=== PATIENT | male | born 1970 | race Caucasian/White ===

== ENCOUNTER 2020-08-23 11:44 | Day surgery (SDC) | payer OTHER ==
[2020-08-21 08:34] LABS: BASOPHILS % (AUTO) 1 % (0-1); EOSINOPHILS % (AUTO) 4 % (1-7); LYMPHOCYTES % (AUTO) 32 % (22-44); MEAN CORPUSCULAR HEMOGLOBIN 30.3 pg (27.5-34.5); MEAN CORPUSCULAR HGB CONC 34.4 g/dL (33.2-36.2); MEAN PLATELET VOLUME 8.8 fL (7.4-10.4); MONOCYTES % (AUTO) 6 % (2-9); NEUTROPHILS % (AUTO) 57 % (42-75); PLATELET COUNT 265 x10^3/uL (130-400); RED BLOOD COUNT 5.24 x10^6/uL (4.38-5.82); RED CELL DISTRIBUTION WIDTH 13.4 % (9.4-14.8)
[2020-08-21 08:43] LABS: MD NO
[2020-08-21 08:45] LABS: ANION GAP 5 mmol/L (5-15); CHLORIDE 106 mmol/L (98-107); CREATININE 0.96 mg/dL (0.7-1.3)
[2020-08-21 08:46] LABS: MICROSCOPIC AUTO
[2020-08-21 08:46] LABS: ALANINE AMINOTRANSFERASE 33 U/L (12-78); ALBUMIN 4.5 g/dL (3.4-5.0)
[2020-08-21 08:47] LABS: INTERNATIONAL NORMALIZED RATIO 1.06 (0.93-1.1); PROTHROMBIN TIME 11.3 Seconds (9.6-11.5)
[2020-08-21 08:48] LABS: ALKALINE PHOSPHATASE 71 U/L (45-117); BILIRUBIN,TOTAL 1.1 mg/dL (0.2-1.0); TOTAL PROTEIN 8.4 g/dL (6.4-8.2)
[~2020-08-23] VITALS: Ht 170.2 cm; Wt 82.7 kg
[~2020-08-23 11:44] MED LIST: ACETAMINOPHEN 325 MG TABLET PO PRN; AMLO5TAB4 PO; ATOR10TA9 PO; CITA10TA4 PO; DIAZEPAM 5 MG/ML, 2ML IVPush PRN; DIPHENHYDRAMINE 50 MG/ML, 1ML IVPush PRN; EPHEDRINE 50 MG/ML, 1ML IVPush PRN; FENTANYL PF 100 MCG/2ML IV PRN; HALOPERIDOL 5 MG/ML IV PRN; HYDROmorphone 1 MG/ML, 1ML INJ IVPush PRN; LABETALOL 5MG/ML, 20ML IV PRN; LISI-170 PO; LORA2TAB99 PO; MEPERIDINE/PF 25MG/0.5ML IVPush PRN; METF500T17 PO; METOCLOPRAMIDE 5 MG/ML, 2ML IVPush PRN; METOPROLOL 1 MG/ML, 5ML IV PRN; OMEP-110 PO; ONDANSETRON 2MG/ML, 2ML IVPush PRN; OXYcodone 5 MG/5 ML ORAL.SOL UDC PO PRN; PROMETHAZINE 25 MG/ML, 1ML IVPush PRN; hydrALAzine 20 MG/ML, 1ML IV PRN; trintellix PO
[2020-08-23 12:15] VITALS: BP 136/91
[2020-08-23] MEDS ORDERED: CHLORHEXIDINE 15 ML UDC ONE (12:17)
[2020-08-23] MEDS ORDERED: OMNIPAQUE 350 MG/ML, 50 ML BOTTLE ONE (12:28)
[2020-08-23] MEDS ORDERED: CHLORHEXIDINE 15 ML UDC PO ONE (12:30)
[2020-08-23] MEDS ORDERED: LACTATED RINGERS 1,000 ML IV SCH (12:30)
[2020-08-23] MEDS ORDERED: MIDAZOLAM 1 MG/ML, 2ML ONE (13:08)
[2020-08-23] MEDS ORDERED: FENTANYL PF 100 MCG/2ML ONE (13:09)
[2020-08-23] MEDS ORDERED: HYDROmorphone 1 MG/ML, 1ML INJ ONE (13:09)
[2020-08-23] MEDS ORDERED: ONDANSETRON 2MG/ML, 2ML ONE (13:55)
[2020-08-23] MEDS ORDERED: CEFAZOLIN 1,000 MG ONE (13:55)
[2020-08-23] MEDS ORDERED: PROPOFOL 10 MG/ML, 20ML ONE (13:55)
[2020-08-23] MEDS ORDERED: EPHEDRINE 50 MG/ML, 1ML ONE (13:55)
[2020-08-23] MEDS ORDERED: DEXAMETHASONE 4 MG/ML, 1ML ONE (13:55)
[2020-08-23] MEDS ORDERED: OPIUM/BELLADONNA SUPP.RECT 16.2-30 MG ONE (14:47)
[2020-08-23] MEDS ORDERED: PHENAZOPYRIDINE 200 MG TABLET ONE (15:42)
[2020-08-23] MEDS ORDERED: PHENAZOPYRIDINE 200 MG TABLET PO ONE (16:00)
== END 2020-08-23 17:00 | disposition home or self-care (01) ==
LOC: OUT 11:44
PROVIDERS: ATTEND Urology
DX: N13.2 Hydronephrosis with renal and ureteral calculous obstruction (principal); E11.9 Type 2 diabetes mellitus without complications; F32.9 Major depressive disorder, single episode, unspecified; E78.5 Hyperlipidemia, unspecified; Z20.822 Contact with and (suspected) exposure to COVID-19; Z79.01 Long term (current) use of anticoagulants; Z79.84 Long term (current) use of oral hypoglycemic drugs; Z79.899 Other long term (current) drug therapy; Z88.0 Allergy status to penicillin
CPT/HCPCS: 36415; 52356; 80053; 81001; 82360; 82962; 85025; 85610; 85730; 87086; 88300; 93005; C1758; C1769; C2617; J0690; J1100; J1170; J2250; J2405; J2704; J3010; J7120; Q9967; U0003; U0005; 76000